=== PATIENT | male | born 1940 | race Caucasian/White ===

== ENCOUNTER 2018-09-26 07:00 | Day surgery (SDC) | payer MEDICARE, BC ==
[2018-09-26] VITALS (11 sets, daily range): BP systolic 109–141; BP diastolic 42–85; PULSE 62–68; TEMP 97.8
[~2018-09-26] VITALS: Ht 176.5 cm; Wt 99.5 kg
[2018-09-26 07:44] LABS: HEMATOCRIT 45.8 % (42.0-52.0); HEMOGLOBIN 15.6 g/dl (13.5-18.0); MEAN CELL VOLUME 99 fl (80.0-100.0); MEAN CORPUSCULAR HEMOGLOBIN 34 pg (27.0-31.0); MEAN CORPUSCULAR HGB CONC 34 g/dl (33.0-37.0); MEAN PLATELET VOLUME 10.1 fl (7.4-10.4); PLATELET COUNT 107 K/mm3 (130-400); RED BLOOD COUNT 4.65 M/mm3 (4.20-5.60); REDCELL DISTRIBUTION WIDTH-CV 14.3 % (11.5-14.5)
[2018-09-26] MEDS ORDERED: THE MEDICINE S200 M2 PO (07:44)
[2018-09-26] MEDS ORDERED: CENTRUM SILVER1 CTB PO (07:45)
[2018-09-26] MEDS ORDERED: GLUCOSAMINE SU500 M2 PO (07:46)
[2018-09-26] MEDS ORDERED: OMEGA-31 SGL PO (07:46)
[2018-09-26] MEDS ORDERED: VITAMIN FLUSH-F1 CAP PO (07:47)
[2018-09-26] MEDS ORDERED: ASPIRIN 81M81 MG/TA2 PO (07:48)
[2018-09-26] MEDS ORDERED: LIPITOR 10MG10 MG PO (07:48)
[2018-09-26] MEDS ORDERED: TYLENOL 500MG500 MG PO (07:49)
[2018-09-26] MEDS ORDERED: ALEVE 220MG220 MG PO (07:49)
[2018-09-26] MEDS ORDERED: MIRALAX PA17 GM/Dose PO (07:50)
[2018-09-26 07:57] LABS: CALCIUM 9.2 mg/dL (8.4-10.2); CREATININE, serum 0.84 mg/dL (0.66-1.25); POTASSIUM 4.2 mmol/L (3.4-5.0)
[2018-09-26 08:04] LABS: INR 1.1 (0.8-3.0); PROTHROMBIN TIME 12.4 SECONDS (9.7-12.8)
== END 2018-09-26 13:15 | disposition home or self-care (01) ==
LOC: COL.CAR 07:00
PROVIDERS: Internal Medicine Cardiovascular Disease
DX: R07.9 Chest pain, unspecified (principal); I45.10 Unspecified right bundle-branch block; K21.9 Gastro-esophageal reflux disease without esophagitis; K44.9 Diaphragmatic hernia without obstruction or gangrene; G47.33 Obstructive sleep apnea (adult) (pediatric); E78.2 Mixed hyperlipidemia; Z79.899 Other long term (current) drug therapy; Z79.82 Long term (current) use of aspirin
CPT/HCPCS: J1644; J2250; J3010; Q9967

== ENCOUNTER 2019-02-28 10:00 | Outpatient (RCR) | payer MEDICARE, BC ==
[2019-01-17 11:09] VITALS: BP 117/64; PULSE 65; TEMP 98.8
[2019-01-19 10:00] VITALS: BP 136/63; PULSE 79; TEMP 97.5
[2019-01-19 10:21] LABS: HEMATOCRIT 41.1 % (42.0-52.0); HEMOGLOBIN 14.4 g/dl (13.5-18.0); MEAN CELL VOLUME 95 fl (80.0-100.0); MEAN CORPUSCULAR HEMOGLOBIN 33 pg (27.0-31.0); MEAN CORPUSCULAR HGB CONC 35 g/dl (33.0-37.0); MEAN PLATELET VOLUME 9.5 fl (7.4-10.4); PLATELET COUNT 89 K/mm3 (130-400); RED BLOOD COUNT 4.34 M/mm3 (4.20-5.60); REDCELL DISTRIBUTION WIDTH-CV 14.1 % (11.5-14.5)
[2019-01-19 10:30] LABS: ALBUMIN 3.7 gm/dL (3.5-5.0); BILIRUBIN,TOTAL 2.1 mg/dL (0.0-1.0); CALCIUM 8.9 mg/dL (8.4-10.2); CREATININE, serum 0.9 (0.66-1.25); POTASSIUM 3.8 mmol/L (3.4-5.0); TOTAL PROTEIN 6.4 gm/dL (6.4-8.2)
[2019-01-19 11:19] LABS: NEUTROPHILS 100 % (42.0-75.2)
[2019-01-19 11:22] LABS: PLATELET ESTIMATE DECREASED (NORMAL)
--- NOTE | 2019-01-26 09:15 | NUR ---
Here for cares. PICC intact right upper arm with sterile dressing change done with insertion site cleansed with chloraprep x 1, chlorhexidine impregnated disk applied, skin prep, stat lock, and tegaderm applied. no signs or symptoms of IV complications noted. no concerns voiced. re-wrapped with kristin to protect catheter. to return next week for cares. voiced understanding of instructions.
[2019-01-26 09:37] VITALS: BP 122/63; PULSE 66; TEMP 97.5
[2019-01-26 09:40] LABS: HEMATOCRIT 39.9 % (42.0-52.0); MEAN CELL VOLUME 95 fl (80.0-100.0); MEAN CORPUSCULAR HEMOGLOBIN 33 pg (27.0-31.0); MEAN CORPUSCULAR HGB CONC 35 g/dl (33.0-37.0); MEAN PLATELET VOLUME 10.1 fl (7.4-10.4); PLATELET COUNT 72 K/mm3 (130-400); REDCELL DISTRIBUTION WIDTH-CV 14.4 % (11.5-14.5)
[2019-01-26 10:29] LABS: BAND 6 % (0-10); NEUTROPHILS 91 % (42.0-75.2); PLATELET ESTIMATE DECREASED (NORMAL)
[2019-01-26 14:17] LABS: ALBUMIN 3.6 gm/dL (3.5-5.0); CREATININE, serum 0.92 (0.66-1.25); POTASSIUM 3.8 mmol/L (3.4-5.0); TOTAL PROTEIN 6.4 gm/dL (6.4-8.2)
[2019-02-02 08:45] VITALS: BP 119/58; PULSE 79; TEMP 96.9
[2019-02-02 09:06] LABS: HEMATOCRIT 39.1 % (42.0-52.0); HEMOGLOBIN 13.8 g/dl (13.5-18.0); MEAN CELL VOLUME 94 fl (80.0-100.0); MEAN CORPUSCULAR HEMOGLOBIN 33 pg (27.0-31.0); MEAN CORPUSCULAR HGB CONC 35 g/dl (33.0-37.0); MEAN PLATELET VOLUME 9.4 fl (7.4-10.4); PLATELET COUNT 92 K/mm3 (130-400); RED BLOOD COUNT 4.16 M/mm3 (4.20-5.60); REDCELL DISTRIBUTION WIDTH-CV 14.6 % (11.5-14.5)
[2019-02-02 09:21] LABS: ALBUMIN 3.7 gm/dL (3.5-5.0); BILIRUBIN,TOTAL 2.2 mg/dL (0.0-1.0); CALCIUM 9.3 mg/dL (8.4-10.2); CREATININE, serum 0.82 (0.66-1.25); POTASSIUM 3.5 mmol/L (3.4-5.0); TOTAL PROTEIN 6.4 gm/dL (6.4-8.2)
[2019-02-02 09:27] LABS: BAND 5 % (0-10); LYMPHOCYTE 1 % (20.0-51.0); NEUTROPHILS 93 % (42.0-75.2); PLATELET ESTIMATE DECREASED (NORMAL)
[2019-02-07 10:00] VITALS: BP 110/49; PULSE 114; TEMP 97.2
--- NOTE | 2019-02-07 10:00 | NUR ---
PICC intact right upper arm with sterile dressing change done with insertion site cleansed with chloraprep x 1, skin prep, stat lock, chlorhexidine impregnated disk, and tegaderm applied. no signs or symptoms of IV complications noted. no concerns voiced. re-wrapped with kristin to protect catheter. to return next week for cares. voiced understanding of instructions.
[2019-02-07 10:10] LABS: HEMATOCRIT 37.8 % (42.0-52.0); HEMOGLOBIN 13.2 g/dl (13.5-18.0); MEAN CELL VOLUME 95 fl (80.0-100.0); MEAN CORPUSCULAR HEMOGLOBIN 33 pg (27.0-31.0); MEAN CORPUSCULAR HGB CONC 35 g/dl (33.0-37.0); MEAN PLATELET VOLUME 9.2 fl (7.4-10.4); PLATELET COUNT 84 K/mm3 (130-400); RED BLOOD COUNT 3.97 M/mm3 (4.20-5.60)
[2019-02-07 10:21] LABS: ALBUMIN 3.7 gm/dL (3.5-5.0); BILIRUBIN,TOTAL 2.3 mg/dL (0.0-1.0); CALCIUM 8.5 mg/dL (8.4-10.2); CREATININE, serum 0.87 (0.66-1.25); POTASSIUM 3.8 mmol/L (3.4-5.0); TOTAL PROTEIN 6.4 gm/dL (6.4-8.2)
[2019-02-07 10:27] LABS: LYMPHOCYTE 1 % (20.0-51.0); NEUTROPHILS 98 % (42.0-75.2); PLATELET ESTIMATE DECREASED (NORMAL)
[2019-02-07 10:28] LABS: ANISOCYTOSIS 1+
[2019-02-14 10:23] LABS: HEMOGLOBIN 13.7 g/dl (13.5-18.0); MEAN CELL VOLUME 95 fl (80.0-100.0); MEAN CORPUSCULAR HEMOGLOBIN 33 pg (27.0-31.0); MEAN CORPUSCULAR HGB CONC 35 g/dl (33.0-37.0); MEAN PLATELET VOLUME 9.4 fl (7.4-10.4); PLATELET COUNT 84 K/mm3 (130-400); REDCELL DISTRIBUTION WIDTH-CV 15.3 % (11.5-14.5)
[2019-02-14 10:32] LABS: BILIRUBIN,TOTAL 2.5 mg/dL (0.0-1.0); CALCIUM 8.9 mg/dL (8.4-10.2); CREATININE, serum 0.82 (0.66-1.25); POTASSIUM 3.9 mmol/L (3.4-5.0); TOTAL PROTEIN 6.7 gm/dL (6.4-8.2)
[2019-02-14 10:50] LABS: LYMPHOCYTE 2 % (20.0-51.0); NEUTROPHILS 97 % (42.0-75.2)
[2019-02-14 10:52] VITALS: BP 108/66; PULSE 71; TEMP 97.7
[2019-02-14 10:53] LABS: PLATELET ESTIMATE DECREASED (NORMAL)
[2019-02-21 09:38] LABS: HEMATOCRIT 39.8 % (42.0-52.0); HEMOGLOBIN 13.7 g/dl (13.5-18.0); MEAN CELL VOLUME 98 fl (80.0-100.0); MEAN CORPUSCULAR HEMOGLOBIN 34 pg (27.0-31.0); MEAN CORPUSCULAR HGB CONC 34 g/dl (33.0-37.0); MEAN PLATELET VOLUME 9.5 fl (7.4-10.4); PLATELET COUNT 77 K/mm3 (130-400); RED BLOOD COUNT 4.08 M/mm3 (4.20-5.60); REDCELL DISTRIBUTION WIDTH-CV 15.5 % (11.5-14.5)
[2019-02-21 09:44] VITALS: BP 119/60; PULSE 74; TEMP 97.7
--- NOTE | 2019-02-21 09:45 | NUR ---
Here for cares. PICC intact right upper arm with sterile technique right upper arm PICC dressing change done with insertion site cleansed with chloraprep x 1, chlorhexidine impregnated disk applied, skin prep, stat lock, and tegaderm applied. no signs or symptoms of IV complications noted. no concerns voiced. re-wrapped with kristin to protect catheter. to return next week for cares. EU RN did cap change. patient to return next week for cares. voiced understanding of instructions.
[2019-02-21 10:10] LABS: NEUTROPHILS 100 % (42.0-75.2)
[2019-02-21 10:11] LABS: PLATELET ESTIMATE DECREASED (NORMAL)
[2019-02-21 10:30] LABS: ALBUMIN 3.8 gm/dL (3.5-5.0); BILIRUBIN,TOTAL 2.1 mg/dL (0.0-1.0); CREATININE, serum 0.88 (0.66-1.25); TOTAL PROTEIN 6.5 gm/dL (6.4-8.2)
[~2019-02-28] VITALS: Ht 177.8 cm; Wt 96.5 kg
[~2019-02-28 10:00] MED LIST: ALEVE 220MG220 MG PO; ASPIRIN 81M81 MG/TA2 PO; CENTRUM SILVER1 CTB PO; GLUCOSAMINE SU500 M2 PO; LIPITOR 10MG10 MG PO; MIRALAX PA17 GM/Dose PO; OMEGA-31 SGL PO; THE MEDICINE S200 M2 PO; TYLENOL 500MG500 MG PO; TYLENOL PM EXTR1 TA1 PO; VITAMIN FLUSH-F1 CAP PO
--- NOTE | 2019-02-28 10:15 | NUR ---
Pt is transfering PICC care to [facility]. Jorge Head RN is arranging.
--- NOTE | 2019-02-28 10:20 | NUR ---
Here for cares. PICC intact right upper arm and with sterile technique right upper arm PICC dressing change done with insertion site cleansed with chloraprep x 1, chlorhexidine impregnated disk applied, skin prep, stat lock, and tegaderm applied. no signs or symptoms of IV complications noted. no concerns voiced. plan to have cares done at [place]. According to patient, he has made these arrangements.
[2019-02-28 10:34] VITALS: BP 107/62; PULSE 55; TEMP 98.1
[2019-02-28 10:39] LABS: HEMATOCRIT 37.9 % (42.0-52.0); HEMOGLOBIN 13.4 g/dl (13.5-18.0); MEAN CELL VOLUME 97 fl (80.0-100.0); MEAN CORPUSCULAR HEMOGLOBIN 34 pg (27.0-31.0); MEAN CORPUSCULAR HGB CONC 35 g/dl (33.0-37.0); MEAN PLATELET VOLUME 9.7 fl (7.4-10.4); PLATELET COUNT 79 K/mm3 (130-400); RED BLOOD COUNT 3.92 M/mm3 (4.20-5.60); REDCELL DISTRIBUTION WIDTH-CV 15.4 % (11.5-14.5)
[2019-02-28 10:47] LABS: ALBUMIN 3.9 gm/dL (3.5-5.0); BILIRUBIN,TOTAL 2.6 mg/dL (0.0-1.0); CALCIUM 9.1 mg/dL (8.4-10.2); CREATININE, serum 0.82 (0.66-1.25); POTASSIUM 4.1 mmol/L (3.4-5.0); TOTAL PROTEIN 6.7 gm/dL (6.4-8.2)
[2019-02-28 11:07] LABS: BAND 1 % (0-10); NEUTROPHILS 99 % (42.0-75.2); PLATELET ESTIMATE DECREASED (NORMAL)
== END 2019-02-28 15:18 | disposition home or self-care (01) ==
LOC: EUO 10:00
PROVIDERS: Internal Medicine
DX: Z45.2 Encounter for adjustment and management of vascular access device (principal); C91.30 Prolymphocytic leukemia of B-cell type not having achieved remission
CPT/HCPCS: C1751

== ENCOUNTER → 2019-03-14 | Outpatient (CLI) | payer MEDICARE, BC | LOC: COL.VAS 14:28 | DX: Z13.6 Encounter for screening for cardiovascular disorders (principal); C91.90 Lymphoid leukemia, unspecified not having achieved remission; I82.432 Acute embolism and thrombosis of left popliteal vein ==

== ENCOUNTER → 2019-08-24 | Outpatient (CLI) | payer MEDICARE, BC ==
[2019-08-24 16:12] LABS: SYNOVIAL FL. MONONUCLEAR 10.7 % (0-75); SYNOVIAL FLUID RBC 45000 /mm3 (0-0); SYNOVIAL FLUID WBC 44623 /mm3 (200-600)
[2019-08-24 16:14] LABS: SYNOVIAL FLUID APPEARANCE CLOUDY; SYNOVIAL FLUID COLOR AMBER
== END ==
LOC: ZCOL.LAB 15:48
PROVIDERS: Orthopaedic Surgery
DX: M25.562 Pain in left knee (principal)

== ENCOUNTER 2019-08-27 13:07 | Inpatient (IN) | payer MEDICARE, BC ==
[~2019-08-27] VITALS: Ht 177.8 cm; Wt 95.9 kg
[2019-08-28] VITALS (13 sets, daily range): BP systolic 113–136; BP diastolic 57–79; PULSE 65–74; TEMP 98–98.6
[2019-08-28 06:16] LABS: HEMOGLOBIN 12.2 g/dl (13.5-18.0); MEAN CELL VOLUME 95 fl (80.0-100.0); MEAN CORPUSCULAR HEMOGLOBIN 33 pg (27.0-31.0); MEAN CORPUSCULAR HGB CONC 35 g/dl (33.0-37.0); MEAN PLATELET VOLUME 10.1 fl (7.4-10.4); PLATELET COUNT 148 K/mm3 (130-400); RED BLOOD COUNT 3.66 M/mm3 (4.20-5.60); REDCELL DISTRIBUTION WIDTH-CV 12.7 % (11.5-14.5)
[2019-08-28 06:25] LABS: HEMATOCRIT 34.8 % (42.0-52.0)
--- NOTE | 2019-08-28 06:30 | NUR ---
TO RM AT 0537- CALL LIGHT IN REACH ALERT ORIENTED X3, VERBALIZED UNDERSTANDING AND SIGNED CONSENT.
[2019-08-28 06:31] LABS: CREATININE, serum 0.71 (0.66-1.25); POTASSIUM 4.1 mmol/L (3.4-5.0)
[2019-08-28] MEDS ORDERED: SENOKOT8.6 MG PO (06:32)
[2019-08-28] MEDS ORDERED: PERCOCET 325 MG1 TAB PO (06:32)
[2019-08-28] MEDS ORDERED: ELIQUIS 5MG PO (06:33)
[2019-08-28] MEDS ORDERED: LYRICA 75MG CAP75 MG PO (06:33)
[2019-08-28] MEDS ORDERED: PROBIOTIC FORMU1 CAP PO (06:34)
[2019-08-28] MEDS ORDERED: CLEOCIN HCL300 MG PO (06:35)
[2019-08-28] MEDS ORDERED: VITAMIN B COMPL1 SGL PO (06:36)
[2019-08-28] MEDS ORDERED: KRILL OIL 1,001 EAC1 PO (06:36)
[2019-08-28] MEDS ORDERED: CENTRUM SILVER1 TA2 PO (06:37)
[2019-08-28] MEDS ORDERED: [UNRECOGNIZED DRUG - OTHER] PO (06:39)
--- NOTE | 2019-08-28 11:00 | NUR ---
Patient has been dong well since arriving to the floor. Minimal complaints of pain, no complaints of nausea. Explained plan of care. No other changes at this time. Dressing to LLE is C/D/I. No other changes at this time. Family at bedside. Call light within reach.
--- NOTE | 2019-08-28 18:00 | NUR ---
Patient has been doing well. He has voided once this afternoon. He denies the urge aftwards. Minimal complaints of pain. Denies nausa. Grandaughter at bedside. No other changes at this time.
--- NOTE | 2019-08-29 03:32 | NUR ---
Patient has rested well throughout the night. Denies the need for pain medication and states, "It's just a little uncomfortable on the top of the knee." Scheduled Tylenol given. Patient ambulates to bathroom with 1A from staff. Bulky dressing present. Denies any further needs at this time. Will continue to monitor.
[2019-08-29 04:00] VITALS: BP 125/66; PULSE 50; TEMP 97.2
[2019-08-29 07:00] VITALS: BP 110/59; PULSE 54; TEMP 98.3
[2019-08-29 07:33] LABS: HEMOGLOBIN 11.4 g/dl (13.5-18.0)
--- NOTE | 2019-08-29 08:39 | NUR ---
ENTERED CONSULT FOR HOSPITALIST. AND MARLEY SCHWARTZ IN TO SEE PT THIS AM. PT IS A/O X3, LUNGS CLEAR, ABDOMINAL SOUNDS PRESENT. DRESSING TO LEFT KNEE CDI WITH JOSIAH WRAP OVER DRESSING.
--- NOTE | 2019-08-29 09:08 | NUR ---
PT OUT TO [facility] WITH THERAPY, WALKED TO [facility] AN BACK IN [facility]. PT TOLERATING WELL.
[2019-08-29 10:40] VITALS: BP 107/57; PULSE 51; TEMP 98.3
--- NOTE | 2019-08-29 12:10 | NUR ---
Initial visit; Patient thanked [employer] for looking in on him, offering spiritual care, prayer and keeping him in [employer]'s prayers.
--- NOTE | 2019-08-29 12:48 | NUR ---
Burning Supervisor met with the patient to discuss discharge planning and complete initial intake. Patient lives in [place] with his , Chari (ph#[phone]). Patient sees Dr. Edward Renteria for primary care and obtains medications from [facility] with no issue. Patient reports independence with ADLS prior to hospitalization. Patient has a walker, cane, and crutches at home. Patient has DPOA-HC and has copy in his room. With patient permission, SW placed copy in patient chart. Patient plans to return home upon discharge. SW will continue to follow as needed.
[2019-08-29 16:48] VITALS: BP 123/54; PULSE 57; TEMP 98
--- NOTE | 2019-08-29 18:51 | NUR ---
REPORT TO RUSSELL VILLAR.
[2019-08-29 23:53] VITALS: BP 130/79; PULSE 71; TEMP 98.3
--- NOTE | 2019-08-30 03:19 | NUR ---
Patient ambulated with one assist to the window at the end of the perez and back with slow, steady gait. States some discomfort. PRN pain medication given at bedtime. Patient has been NPO since midnight for CT scan and PICC placement this morning. Will continue to monitor patient.
[2019-08-30 04:38] VITALS: BP 146/74; PULSE 61; TEMP 98.2
[2019-08-30 06:41] LABS: BASO % 0.3 % (0.0-2.0); EOS # 0.2 (0.0-0.7); GRAN % 81.6 % (42.2-75.2); HEMOGLOBIN 10.8 g/dl (13.5-18.0); LYMPH # 0.2 (1.2-3.4); LYMPH % 3.6 % (20.0-51.0); MEAN CELL VOLUME 97 fl (80.0-100.0); MEAN CORPUSCULAR HEMOGLOBIN 33 pg (27.0-31.0); MEAN CORPUSCULAR HGB CONC 34 g/dl (33.0-37.0); MEAN PLATELET VOLUME 10.7 fl (7.4-10.4); MONO # 0.7 (0.1-0.6); PLATELET COUNT 150 K/mm3 (130-400); RED BLOOD COUNT 3.24 M/mm3 (4.20-5.60); REDCELL DISTRIBUTION WIDTH-CV 13.1 % (11.5-14.5)
[2019-08-30 06:54] LABS: CALCIUM 8.7 mg/dL (8.4-10.2); CREATININE, serum 0.77 (0.66-1.25); POTASSIUM 3.9 mmol/L (3.4-5.0)
[2019-08-30 06:56] LABS: HEMATOCRIT 31.5 % (42.0-52.0)
[2019-08-30 07:28] VITALS: BP 144/73; PULSE 58; TEMP 98.3
--- NOTE | 2019-08-30 07:57 | NUR ---
PATIENT GOING DOWN TO CT VIA WC.
[2019-08-30 11:52] VITALS: BP 127/65; PULSE 63; TEMP 98
[2019-08-30] MEDS ORDERED: ROCEPHIN 2GM VIAL21 IV ×2 (13:37→16:48)
--- NOTE | 2019-08-30 15:35 | NUR ---
AIVS AT BEDSIDE TO PLACE PICC LINE.
[2019-08-30 16:04] VITALS: BP 134/73; PULSE 67; TEMP 97.9
--- NOTE | 2019-08-30 17:36 | NUR ---
Asset Protection Officer was notified by Hospitalist that patient will require outpatient IV antibiotics. SW spoke with patient who states he would like to go [facility]. [place]O [place] [facility] [place]. Once orders were completed, TETO [place] [facility] [place] [facility] [place] first appointment for tomorrow at 8:00am. TETO informed patient and sr community manager. Both in agreeance. No additional concerns. Patient to discharge this evening and return home in [place].
--- NOTE | 2019-08-30 17:56 | NUR ---
PATIENT DISCHARGING HOME VIA WC TO PERSONAL VEHICLE WITH FAMILY. GAVE DISCHARGE INSTRUCTIONS, PRESCRIPTIONS AND FOLLOW UP APTS. ANSWERED ALL QUESTIONS/CONCERNS. PATIENT DISCHARGING WITH RIGHT UPPER ARM PICC. INFORMATION PACKET SENT WITH PATIENT.
== END 2019-08-30 17:57 | disposition home or self-care (01) | DRG 560 ==
LOC: INPTSU 08-28 05:27 → SURG 08-28 05:27 → JCC 08-28 07:15 → SURG 08-28 07:15
PROVIDERS: Hospitalist; Nurse Anesthetist, Certified Registered; Physician Assistant; ADMIT Orthopaedic Surgery
PROC: 02HV33Z Insertion of Infusion Device into Superior Vena Cava, Percutaneous Approach (ICD-10-PCS; principal; 2019-08-30)
DX: T84.54XA Infection and inflammatory reaction due to internal left knee prosthesis, initial encounter (principal); C95.90 Leukemia, unspecified not having achieved remission; E78.00 Pure hypercholesterolemia, unspecified; G35 Multiple sclerosis; Y83.9 Surgical procedure, unspecified as the cause of abnormal reaction of the patient, or of later complication, without mention of misadventure at the time of the procedure; K44.9 Diaphragmatic hernia without obstruction or gangrene; G47.33 Obstructive sleep apnea (adult) (pediatric); E78.5 Hyperlipidemia, unspecified; K76.9 Liver disease, unspecified; I25.10 Atherosclerotic heart disease of native coronary artery without angina pectoris; K21.9 Gastro-esophageal reflux disease without esophagitis; Z79.01 Long term (current) use of anticoagulants; Z86.718 Personal history of other venous thrombosis and embolism; Z96.652 Presence of left artificial knee joint; Z87.891 Personal history of nicotine dependence
CPT/HCPCS: 99222; 99239; A9284; C1751; C1776; J0360; J0690; J0696; J1100; J1170; J1885; J2405; J2704; J3010; J3260; J3370; J7120; J7121; Q9967

== ENCOUNTER 2024-01-10 07:59 | Outpatient (CLI) | payer MEDICARE, BC ==
[~2024-01-10] VITALS: Ht 177.8 cm; Wt 103.2 kg
[~2024-01-10 07:59] MED LIST changes: +CENTRUM SILVER1 TA2 PO; +CLEOCIN HCL300 MG PO; +ELIQUIS 5MG PO; +KRILL OIL 1,001 EAC1 PO; +LYRICA 75MG CAP75 MG PO; +PERCOCET 325 MG1 TAB PO; +PROBIOTIC FORMU1 CAP PO; +ROCEPHIN 2GM VIAL21 IV; +SENOKOT8.6 MG PO; +VITAMIN B COMPL1 SGL PO; +[UNRECOGNIZED DRUG - OTHER] PO
[2024-01-10 08:30] VITALS: BP 146/76; PULSE 73; TEMP 98.1
--- NOTE | 2024-01-10 09:07 | NUR ---
Pt free of complaints. Dressing over PICC site clean, dry intact, kristin wrap in place. He dresses, refuses wheelchair assistance out. He and are escorted to elevator, gait steady.
[2024-01-10] MEDS ORDERED: PREDNISONE10 MG PO (10:01)
[2024-01-10] MEDS ORDERED: PRILOSEC 20MG20 MG PO (10:01)
[2024-01-10] MEDS ORDERED: BIOTIN2500 MCG PO (10:02)
[2024-01-10] MEDS ORDERED: PROBIOTIC BLEN1 EACH PO (10:02)
[2024-01-10] MEDS ORDERED: B COMPLEX #11 TA1 PO (10:03)
[2024-01-10] MEDS ORDERED: MEGARED OMEGA-1 EAC4 PO (10:03)
[2024-01-10] MEDS ORDERED: OSTEO-BI-FLEX 21 TAB PO (10:04)
[2024-01-10] MEDS ORDERED: THE MEDICINE S200 M2 PO (10:04)
[2024-01-10] MEDS ORDERED: KLONOPIN 0.5MG0.5 MG PO (10:05)
[2024-01-10] MEDS ORDERED: MELATONIN5 M1 SL (10:06)
[2024-01-10] MEDS ORDERED: NORVASC 5MG5 MG/TAB PO (10:06)
== END 2024-01-10 09:07 | disposition home or self-care (01) ==
LOC: EUO 07:59
DX: C83.09 Small cell B-cell lymphoma, extranodal and solid organ sites (principal); D72.820 Lymphocytosis (symptomatic)
CPT/HCPCS: C1751